=== PATIENT | female | born 1960 | race Asian ===

== ENCOUNTER 2018-02-27 10:00 | Day surgery (SDC) | payer OTHER ==
[~2018-02-27] VITALS: Ht 152.4 cm; Wt 46.4 kg
[~2018-02-27 10:00] MED LIST: ALLO100T PO; ATEN-138 PO; METF-849 PO
[2018-02-27] MEDS ORDERED: LEVOTHYROXINE (10:54)
[2018-02-27] MEDS ORDERED: LOSARTAN (10:54)
[2018-02-27] MEDS ORDERED: JANUVIA (10:54)
[2018-02-27 10:56] VITALS: Ht 152.4 cm; Wt 46.4 kg
[2018-02-27 11:34] VITALS: BP 132/79; PULSE 80; RESP 18
[2018-02-27] MEDS ORDERED: FENTAnyl 50 MCG/ML VIAL ONE (12:08)
[2018-02-27] MEDS ORDERED: MIDAZOLAM 1 MG/ML 2 ML INJ ONE (12:08)
[2018-02-27 12:40] VITALS: BP 133/83; PULSE 72; RESP 21
== END 2018-02-27 12:16 | disposition home or self-care (01) ==
LOC: GIL 10:00
PROVIDERS: ATTEND Internal Medicine Gastroenterology
DX: K92.1 Melena (principal); K64.8 Other hemorrhoids; K51.90 Ulcerative colitis, unspecified, without complications; E11.9 Type 2 diabetes mellitus without complications; I10 Essential (primary) hypertension
CPT/HCPCS: 45380; 88305; J2250; J3010; Z7610